=== PATIENT | female | born 1975 | race Caucasian/White ===

== ENCOUNTER 2020-03-10 23:29 | Emergency (ER) | payer SELFPAY ==
[~2020-03-10] VITALS: Ht 170.2 cm; Wt 61.7 kg
[2020-03-10 23:35] VITALS: BP 132/76
--- NOTE | 2020-03-10 23:40 | NUR ---
PT TAKEN TO BED 12 WITH STEADY GAIT.
--- NOTE | 2020-03-10 23:54 | NUR ---
DR FREEMAN AT BEDSIDE EVALUATING PT
--- NOTE | 2020-03-10 23:54 | NUR ---
44 Y/O FEMALE C/O RLQ PAIN X 2 DAYS. PT STATES 10/10 SHARP PAIN WITH C/O N/V. ABD SOFT NON TENDER. MHX: DENIES ALLERGIES: PCN, SHELLFISH
--- NOTE | 2020-03-10 23:54 | NUR ---
Art edwards in ED - 03/11/20 at [email or web address] LITTLE AT BEDSIDE EVALUATING PT
--- NOTE | 2020-03-11 00:20 | NUR ---
PT TAKEN TO CT VIA W/C
[2020-03-11] MEDS: MORPHINE SULFATE 4 MG/ML SYR IVP ONE ×2 (00:26→01:40)
[2020-03-11] MEDS: ONDANSETRON 4 MG/2 ML VIAL IVP ONE (00:26)
[2020-03-11 00:34] LABS: BASOPHILS # (AUTO) 0.1 K/uL (0.00-0.22)
--- NOTE | 2020-03-11 00:34 | NUR ---
PT RETURNED FROM CT VIA W/C.
[2020-03-11 00:39] LABS: BASOPHILS % (AUTO) 0.5 % (0.0-2.0); EOSINOPHILS # (AUTO) 0.4 K/uL (0-0.4); EOSINOPHILS % (AUTO) 3.8 % (0.0-4.0); HEMATOCRIT 38.6 % (36-48); HEMOGLOBIN 12.7 g/dL (12.0-16.0); LYMPHOCYTES % (AUTO) 8.4 % (20.5-51.1); MEAN CORPUSCULAR HEMOGLOBIN 30 pg (27-31); MEAN CORPUSCULAR HGB CONC 33 g/dL (33-37); MEAN CORPUSCULAR VOLUME 91.5 fL (80-94); MONOCYTES # (AUTO) 0.6 K/uL (0.8-1.0); NEUTROPHILS # (AUTO) 9.3 K/uL (1.8-7.7); PLATELET COUNT (AUTO) 277 K/uL (140-450); RED BLOOD CELL COUNT(AUTO) 4.22 MIL/uL (4.20-5.40); RED CELL DISTRIBUTION WIDTH 14.6 % (11.6-13.7); WHITE BLOOD COUNT (AUTO) 11.4 K/uL (4.8-10.8)
[2020-03-11] MEDS: NACL 0.9% 1,000 ML IV ONE (00:43)
[2020-03-11 00:46] LABS: ALBUMIN 3.7 g/dL (3.4-5.0); ANION GAP 10.1 (8-16); CARBON DIOXIDE 26.4 mmol/L (21-32); POTASSIUM 3.5 mmol/L (3.5-5.1); TOTAL BILIRUBIN 0.3 mg/dL (0.0-1.0)
[2020-03-11 00:48] LABS: NEUTROPHILS % (AUTO) 82.3 % (42.2-75.2)
[2020-03-11 01:26] LABS: APPEARANCE,URINE CLOUDY (CLEAR); BILIRUBIN,URINE 1+ (NEGATIVE); BLOOD, URINE 3+ (NEGATIVE); LEUKOCYTE ESTERASE ,URINE NEGATIVE (NEGATIVE); NITRITE, URINE NEGATIVE (NEGATIVE); UGLUCOSE NEGATIVE (NEGATIVE)
[2020-03-11] MEDS: KETOROLAC 30 MG/ML VIAL IVP ONE (01:39)
[2020-03-11 01:53] LABS: COLOR,URINE SLIGHT BLOODY (YELLOW)
[2020-03-11 01:56] LABS: RBC,URINE TOO NUMEROUS TO COUN /HPF (0-5); WBC,URINE 0-5 /HPF (0-5)
[2020-03-11 01:58] LABS: URINE AMORPHOUS URATE 1+ /HPF (None Seen)
[2020-03-11 02:14] VITALS: BP 115/61
--- NOTE | 2020-03-11 02:14 | NUR ---
Patient discharged with v/s stable. Written and verbal after care instructions given and explained. Patient alert, oriented and verbalized understanding of instructions. Ambulatory with steady gait. All questions addressed prior to discharge. ID band removed. IV Discontinued. Patient advised to follow up with PMD. Rx of NAPROSYN, NORCO, AND ZOFRAN given. Patient educated on indication of medication including possible reaction and side effects. Opportunity to ask questions provided and answered.
== END 2020-03-11 02:14 | disposition home or self-care (01) ==
LOC: MED 23:29
DX: N20.1 Calculus of ureter (principal); F17.210 Nicotine dependence, cigarettes, uncomplicated; Z88.0 Allergy status to penicillin; Z91.013 Allergy to seafood
CPT/HCPCS: 36415; 74176; 80053; 81001; 81025; 83690; 85025; 96361; 96374; 96375; 96376; 99284; J1885; J2270; J2405; J7030; 81002; 96366